=== PATIENT | female | born 1960 | race Caucasian/White ===

== ENCOUNTER 2020-08-17 16:44 | Emergency (ER) | payer OTHER | END 2020-08-17 17:17 | disposition home or self-care (01) | LOC: JVIRT 16:44 | DX: Z03.818 Encounter for observation for suspected exposure to other biological agents ruled out (principal) | CPT/HCPCS: C9803; Q3014-GT; U0003 ==

== ENCOUNTER 2020-08-22 11:43 | Emergency (ER) | payer OTHER | END 2020-08-22 13:10 | disposition home or self-care (01) | LOC: JVIRT 11:43 | DX: Z03.818 Encounter for observation for suspected exposure to other biological agents ruled out (principal) | CPT/HCPCS: C9803; Q3014-GT; U0003 ==